=== PATIENT | female | born 1970 | race Caucasian/White ===

== ENCOUNTER 2023-07-08 07:40 | Outpatient (CLI) | payer OTHER, SELFPAY ==
--- NOTE | 2023-07-08 07:51 | MM_ITS ---
WS: [id number] Bilateral screening 3D tomosynthesis digital mammogram, 07/08/2023 Clinical Data: SCREEN Comparison: 04/19/2022, 11/04/2020 Findings: The breast parenchymal pattern shows fibroglandular tissue. No spiculated masses or clustered calcifi cations are seen. There are no secondary signs of carcinoma. Impression: 1. Negative bilateral mammogram unchanged. 2. Recommend annual screening mammograms. MM/[place] [id number] BIRADS: 1-Negative FOLLOW UP: 1 Year Follow-up The CAD stock checkerer was used.
== END 2023-07-08 07:41 | disposition home or self-care (01) ==
LOC: RAD 07:41
PROVIDERS: Family Provider Family Medicine; PCP Internal Medicine; Visit Provider Internal Medicine
DX: Z12.31 Encounter for screening mammogram for malignant neoplasm of breast (principal)
CPT/HCPCS: 77063; 77067

== ENCOUNTER 2024-08-17 08:52 | Outpatient (CLI) | payer OTHER, SELFPAY ==
--- NOTE | 2024-08-17 08:57 | MM_ITS ---
WS: [id number] Bilateral screening 3D tomosynthesis digital mammogram, 08/17/2024 9:02 AM Clinical Data: SCREENING Comparison: 05/09/2023, 04/19/2022, 11/04/2020. Findings: No spiculated masses or clustered calcifications are seen. There are no secondary signs of carcinoma. MM/MM scr BI tomosynthesis [id number] Impression: Negative bilateral mammogram unchanged. Recommend annual screening mammograms. BIRADS: 1 - Negative. FOLLOW UP: 1 Year Follow-up DENSITY: There are scattered areas of fibroglandular density. The CAD metal checker was used
== END 2024-08-17 08:53 | disposition home or self-care (01) ==
PROVIDERS: Family Provider Family Medicine; PCP Internal Medicine; Visit Provider Internal Medicine
DX: Z12.31 Encounter for screening mammogram for malignant neoplasm of breast (principal); R92.323 Mammographic fibroglandular density, bilateral breasts
CPT/HCPCS: 77063; 77067